=== PATIENT | female | born 1970 | race Two or more races ===

== ENCOUNTER 2020-01-12 06:13 | Day surgery (SDC) | payer BC ==
[2020-01-08 15:47] LABS: Basophils # (auto) 0.1 10 ^3/uL (0-0.2); Eosinophils # (auto) 0.3 10 ^3/uL (0-0.8); Hematocrit 40.3 % (36.0-46.0); Hemoglobin 13.1 g/dL (12.2-16.2); Lymphocytes # (auto) 2.1 10 ^3/uL (0.4-5.4); Lymphocytes % (auto) 37.5 % (10.0-50.0); Mean Corpuscular Hemoglobin 29.3 pg (28.0-32.0); Mean Corpuscular Hgb Conc. 32.7 g/dL (32.0-36.0); Mean Corpuscular Volume 89.6 fL (80.0-100.0); Monocytes # (auto) 0.5 10 ^3/uL (0-1.3); Monocytes % (auto) 9.3 % (0.0-12.0); Neutrophils # (auto) 2.5 10 ^3/uL (1.6-8.6); Neutrophils % (auto) 46.2 % (37.0-80.0); Nucleated Red Blood Cells % 0.1 %; Platelet Count (auto) 260 10^3/uL (140-450); Red Blood Cells 4.49 10^6/uL (4.0-5.20); Red Cell Distribution Width 13.4 % (11.8-14.3); White Blood Cell 5.5 10^3/uL (4.4-10.8)
[2020-01-08 15:54] LABS: Urine Bacteria FEW /hpf (None Seen); Urine Blood Negative /uL (Negative); Urine Mucus FEW (None Seen); Urine Specific Gravity 1.022 (1.001-1.035); Urine WBC 8 /hpf (0 - 5)
[2020-01-08 16:21] LABS: Albumin 3.6 g/dL (3.4-5.0); Calcium 8.6 mg/dL (8.5-10.1); Potassium 3.9 mmol/L (3.5-5.1)
[2020-01-08 16:24] LABS: INR 1.02 (0.9-1.15)
[2020-01-08 16:26] LABS: BUN/Creatinine Ratio 26.3; Bilirubin, Total 0.5 mg/dL (0.2-1.0); Total Protein 7.9 g/dL (6.4-8.2)
[~2020-01-12] VITALS: Ht 160 cm; Wt 77.1 kg
[~2020-01-12 06:13] MED LIST: INSDRIP SC; INSUINJ37 SC
[2020-01-12] MEDS ORDERED: ceFAZolin 1GM/50ML 50 ML IV ONE (06:49)
[2020-01-12] MEDS ORDERED: LIDOCAINE 1% HCL (LOCAL ANESTH.) INJ 20ML MDV ONE (07:10)
[2020-01-12] MEDS ORDERED: fentaNYL CITRATE 100 MCG/2 ML VL ONE (07:40)
[2020-01-12] MEDS ORDERED: MIDAZOLAM HCL 1MG/1ML-2 ML VIAL ONE (07:40)
[2020-01-12] MEDS ORDERED: MEPERIDINE HCL (50 MG/ML) 1 ML VIAL ONE (07:40)
[2020-01-12] MEDS ORDERED: ONDANSETRON HCL 4 MG/2 ML VIAL ONE (08:01)
[2020-01-12] MEDS ORDERED: DexAMETHasone SOD PHOS 10MG/1ML VIAL INJ ONE (08:01)
[2020-01-12] MEDS ORDERED: PROPOFOL 10 MG/ML 20 ML IV ONE (08:01)
[2020-01-12] MEDS ORDERED: HYDROmorphone HCL 2 MG/ML VL IV PRN (09:00)
[2020-01-12] MEDS ORDERED: MORPHINE SULFATE 4 MG/ML SYR/VIAL IV PRN (09:00)
[2020-01-12] MEDS ORDERED: MIDAZOLAM HCL 1MG/1ML-2 ML VIAL IV PRN (09:00)
[2020-01-12] MEDS ORDERED: KETOROLAC TROMETH 30 MG/ML 1ML VIAL IV ONE (09:00)
[2020-01-12] MEDS ORDERED: ACCU-CHEK COMFORT CURVE STRIP VI ONE (09:00)
[2020-01-12] MEDS ORDERED: LABETALOL HCL 5 MG/ML 4ML SYRINGE IV PRN (09:00)
[2020-01-12] MEDS ORDERED: ePHEDrine SULFATE 50 MG/ML AMP IV PRN (09:00)
[2020-01-12] MEDS ORDERED: ONDANSETRON HCL 4 MG/2 ML VIAL IV PRN (09:00)
[2020-01-12 09:05] VITALS: BP 145/83
== END 2020-01-12 09:19 | disposition home or self-care (01) ==
LOC: SUR 06:13
PROVIDERS: ATTEND Orthopaedic Surgery
DX: G56.01 Carpal tunnel syndrome, right upper limb (principal); M65.331 Trigger finger, right middle finger; E11.9 Type 2 diabetes mellitus without complications; Z98.890 Other specified postprocedural states; Z79.899 Other long term (current) drug therapy; Z11.59 Encounter for screening for other viral diseases
CPT/HCPCS: 25020; 26055; 36415; 64721; 80053; 81001; 82962; 85025; 85610; 85730; J0690; J1100; J2001; J2175; J2250; J2405; J2704; J3010; U0003